=== PATIENT | female | born 1960 | race Two or more races ===

== ENCOUNTER 2024-03-31 16:52 | Inpatient (IN) | payer MEDICAID, OTHER ==
[~2024-03-31] VITALS: Ht 157.5 cm; Wt 89.2 kg
[~2024-03-31 16:52] MED LIST: IBUP-1456 PO; LOPE2TAB73 PO; OMEP20CA74 OR
[2024-03-31] MEDS ORDERED: HYDROmorphone HCL 2 MG/ML VL/or syr IV ONE (19:30)
--- NOTE | 2024-03-31 19:53 | ED.PDOC ---
History of Present Illness(SKN HPI Comments This is a pleasant but obese 63-year-old female who arrives to the ED today for evaluation of a vaginal abscess that began five days ago and has worsened daily. Patient states it is a right-sided on abscess and she has had difficulties even sitting at this point has she states it has become very large. Patient denies any fever nausea or vomiting. Vital signs were stable on arrival. Chief Complaint: Abscess Time Seen by MD: 19:04 Primary Care Provider: MEDARDO History of Present Illness: Nurses Notes Allergies: Coded Allergies: NO KNOWN ALLERGIES (Unverified , 03/30/13) Home Meds Active Scripts Ibuprofen (Ibuprofen) 800 Mg Tab, 800 MG PO Q6HP PRN, #30 MG 0 Refills Prov:JASON MIRANDA 03/30/13 Loperamide Hcl (Loperamide A-D) 2 Mg Tab, 2 MG PO TIDP PRN, #15 TAB 0 Refills Prov:AJSON MIRANDA 03/30/13 Omeprazole (PRILOSEC) 20 Mg Cap, 20 MG OR DAILY, #30 CAP 0 Refills Prov:JASON MIRANDA [facility] 03/30/13 Information Source: Patient Mode of Arrival: Ambulatory Severity: Moderate Timing: Days Duration: Since onset Prehospital treatment: None Location: Other (Right-sided vagina) Mechanism: Spontaneous Onset Object: None Condition of Object: None Retained Foreign Body: No Wound Type: Abscess Tetanus: >5 Years Associated Signs and Symptoms: Redness, Swelling Past Medical History PAST MEDICAL HISTORY: Denies Surgical History: Denies all surgeries [employer] History: No Pertinent [employer] History Family History Family History: Unknown Social History Smoker: Non-Smoker Alcohol: Denies ETOH Use Drugs: Denies Drug Use Lives In: Home Constitutional: denies: chills, diaphoresis, fatigue, fever, malaise, sweats, weakness, others EENTM: denies: blurred vision, double vision, ear bleeding, ear discharge, ear drainage, ear pain, ear ringing, eye pain, eye redness, hearing loss, mouth pain, mouth swelling, nasal discharge, nose bleeding, nose congestion, nose p ain, photophobia, tearing, throat pain, throat swelling, voice changes, others Respiratory: denies: cough, hemoptysis, orthopnea, SOB at rest, shortness of breath, SOB with excertion, stridor, wheezing, others Cardiovascular: denies: chest pain, dizzy spells, diaphoresis, Dyspnea on exertion, edema, irregular heart beat, left arm pain, lightheadedness, palpitations, PND, syncope, others Gastrointestinal: denies: abdomen distended, abdominal pain, blood streaked bowels, constipated, diarrhea, dysphagia, difficulty swallowing, hematemesis, melena, nausea, poor appetite, poor fluid intake, rectal bleeding, rectal pain, vomiting, others Genitourinary: reports: others (Right-sided vaginal abscess); denies: abnormal vagina bleeding, burning, dyspareunia, dysuria, flank pain, frequency, hematuria, incontinence, pain, , vagina discharge, urgency Neurological: denies: dizziness, fainting, headache, left sided numbness, left sided weakness, numbness, paresthesia, pre-existing deficit, right sided numbness, right sided weakness, seizure, speech problems, tingling, tremors, weakness, others Musculoskeletal: denies: back pain, gout, joint pain, joint swelling, muscle pain, muscle stiffness, neck pain, others Integumetry: denies: bruises, change in color, change in hair/nails, dryness, laceration, lesions, lumps, rash, wounds, others Allergic/Immunocompromised: denies: Difficulty Healing, Frequent Infections, Hives, Itching, others Hematologic/Lymphatic: denies: anemia, blood clots, easy bleeding, easy bruising, swollen glands, others Endocrine: denies: excessive hunger, excessive sweating, excessive thirst, excessive urination, flushing, intolerance to cold, intolerance to heat, unexplained weight gain, unexplained weight loss, others Psychiatric: denies: anxiety, bipolar disorder, depression, hopeless, panic disorder, schizophrenia, sleepless, suicidal, others Physical Exam General Appearance: Moderate Distress (Due vaginal abscess pain), Obese HEENT: Normal ENT Inspection, Pharynx Normal, TMs Normal Neck: Full Range of Motion, Non-Tender, Normal, Normal Inspection Respiratory: Chest Non-Tender, Lungs Clear, No Accessory Muscle Use, No Respiratory Distress, Normal Breath Sounds Cardiovascular: No Edema, No JVD, No Murmur, No Gallop, Normal Peripheral Pulses, Regular Rate/Rhythm Breast Exam: Deferred Gastrointestinal: No Organomegaly, Non Tender, No Pulsatile Mass, Normal Bowel Sounds, Soft Genitalia: Other (Patient displays a large 6-7 cm elongated and loculated abscess to the right labia majora. Possible inferior drainage point noted. Exquisitely tender to palpation throughout.) Pelvic: Deferred Rectal: Deferred Extremities: No calf tenderness, Normal capillary refill, Normal inspection, Normal range of motion, Non-tender, No pedal edema Neurologic: Alert, No Motor Deficits, Normal Affect, Normal Mood, No Sensory Deficits Cerebellar Function: Normal Reflexes: Normal Skin: Dry, Normal Color, Warm Lymphatic: No Adenopathy Was a procedure done? Was a procedure done?: No Differential Diagnosis (INTG) Differential Diagnosis: Other (Vaginal abscess, Bartholin's cyst lower) X-Ray, Labs, Meds, VS Vital Signs Date Time Temp Pulse Resp B/P (MAP) Pulse Ox O2 Delivery O2 Flow Rate FiO2 03/31/24 17:10 99.3 107 18 107/61 (76) 96 Lab Test 03/31/24 19:37 Range/Units White Blood Count 7.4 4.4-10.8 10^3/uL Red Blood Count 4.35 4.0-5.20 10^6/uL Hemoglobin 14.2 12.2-16.2 g/dL Hematocrit 41.7 36.0-46.0 % Mean Corpuscular Volume 95.8 80.0-100.0 fL Mean Corpuscular Hemoglobin 32.8 H 28.0-32.0 pg Mean Corpuscular Hemoglobin Concent 34.2 32.0-36.0 g/dL Red Cell Distribution Width 13.5 11.8-14.3 % Platelet Count 229 140-450 10^3/uL Mean Platelet Volume 8.6 6.9-10.8 fL Neutrophils (%) (Auto) 69.6 37.0-80.0 % Lymphocytes (%) (Auto) 20.6 10.0-50.0 % Monocytes (%) (Auto) 6.6 0.0-12.0 % Eosinophils (%) (Auto) 2.8 0.0-7.0 % Basophils (%) (Auto) 0.4 0.0-2.0 % Neutrophils # (Auto) 5.2 1.6-8.6 10 ^3/uL Lymphocytes # (Auto) 1.5 0.4-5.4 10 ^3/uL Monocytes # (Auto) 0.5 0-1.3 10 ^3/uL Eosinophils # (Auto) 0.2 0-0.8 10 ^3/uL Basophils # (Auto) 0 0-0.2 10 ^3/uL Nucleated Red Blood Cells 0.0 % Sodium Level Pending Potassium Level Pending Chloride Level Pending Carbon Dioxide Level Pending Anion Gap Pending Blood Urea Nitrogen Pending Creatinine Pending Glomerular Filtration Rate Calc Pending BUN/Creatinine Ratio Pending Serum Glucose Pending Lactic Acid Level Pending Calcium Level Pending X-Ray, Labs, Meds, VS Comment I attempted some mild manipulation to see if I can ascertain any level of drainage, but the abscess is loculated and will require surgical debridement. Patient's insurance on arrival was designated as [employer] at arrival. Patient no longer has [employer] but rather, has [facility]. Time of 1ST Reevaluation: 19:52 Reevaluation 1ST: Improved Consultation: PCP, Surgery Patient Education/Counseling: Diagnosis, Treatment Family Education/Counseling: Diagnosis, Treatment Departure 1 Departure Time of Disposition: 19:52 Impression: Primary Impression: Abscess of vagina Disposition: 02 SHORT TERM HOSPITAL Condition: Stable Discharged With: Self Critical Care Note Critical Care Time?: No Stability Stability form required: No Heart Score Heart Score: Heart Score Response (Comments) Value History N/A 0 EKG N/A 0 Age N/A 0 Risk Factors N/A 0 Troponin N/A 0 Total 0 ANUSHKA SAAB PAC Mar 31, 2024 19:53
[2024-03-31 20:09] LABS: Basophils # (auto) 0 10 ^3/uL (0-0.2); Basophils % (auto) 0.4 % (0.0-2.0); Eosinophils # (auto) 0.2 10 ^3/uL (0-0.8); Eosinophils % (auto) 2.8 % (0.0-7.0); Hematocrit 41.7 % (36.0-46.0); Hemoglobin 14.2 g/dL (12.2-16.2); Lymphocytes # (auto) 1.5 10 ^3/uL (0.4-5.4); Lymphocytes % (auto) 20.6 % (10.0-50.0); Mean Corpuscular Hemoglobin 32.8 pg (28.0-32.0); Mean Corpuscular Hgb Conc. 34.2 g/dL (32.0-36.0); Mean Corpuscular Volume 95.8 fL (80.0-100.0); Monocytes # (auto) 0.5 10 ^3/uL (0-1.3); Monocytes % (auto) 6.6 % (0.0-12.0); Neutrophils # (auto) 5.2 10 ^3/uL (1.6-8.6); Neutrophils % (auto) 69.6 % (37.0-80.0); Platelet Count (auto) 229 10^3/uL (140-450); Red Blood Cells 4.35 10^6/uL (4.0-5.20); Red Cell Distribution Width 13.5 % (11.8-14.3); White Blood Cell 7.4 10^3/uL (4.4-10.8)
[2024-03-31 20:21] LABS: Potassium 4.3 mmol/L (3.5-5.1); Sodium 142 mmol/L (136-145)
[2024-03-31 20:22] LABS: Anion Gap 7 (5-15); Calcium 9.9 mg/dL (8.7-10.4); Carbon Dioxide 26 mmol/L (20-31)
[2024-03-31 20:28] LABS: BUN/Creatinine Ratio 19.2 (10.0-20.0); Blood Urea Nitrogen 14 mg/dL (9-23)
[2024-03-31 20:36] LABS: Chloride 109 mmol/L (98-107); Glucose 114 mg/dL (74-106)
[2024-03-31] MEDS ORDERED: ONDANSETRON HCL 4 MG/2 ML VIAL IV PRN (21:45)
[2024-03-31] MEDS ORDERED: MORPHINE SULFATE INJ 2 MG/ml SYRG IV PRN ×2 (21:45→22:30)
[2024-03-31] MEDS ORDERED: DOCUSATE SOD 100 MG CAP PO PRN (21:45)
[2024-03-31] MEDS ORDERED: HYDROcodone-ACET 5/325MG TAB PO PRN (21:45)
[2024-03-31] MEDS ORDERED: NITROGLYCERIN 0.4 MG SL TAB SL PRN (22:30)
--- NOTE | 2024-03-31 22:39 | DVHHP2 ---
History of Present Illness Reason for Visit: Abscess of vagina History of Present Illness The patient is a 63-year-old female who denies past medical history presented to [facility] ED for evaluation of vaginal abscess. Patient reports right-sided vaginal abscess which is very large, causing difficulty sitting, pa inful when ambulating,, rating pain 7/10 numeric scale, getting worse that prompted this visit. Patient was seen and evaluated in the ED, laboratory data shows WBC 7.4, platelets 229, sodium 142, potassium 4.3, BUN 14, creatinine 0.73, GFR 94, glucose 114, blood pressure 107/61, heart rate 107, temperature 99.3, O2 saturation 96% on room air. Patient was started on IV antibiotic r egimen Rocephin, please see medication orders section in the computer. On my assessment, patient denied chest pain, no headache, no dizziness, no nausea, no vomiting, no fever, no chills. No other modifying factor or other associated signs and symptoms noted. The patient was admitted to the hospital for further evaluation and medical management. Past Medical History Denies past medical history Past Surgical History Denies all surgeries Family History Reviewed, noncontributory to the management of this case. Past Social History The patient lives at home, denies smoking, alcohol or illicit drugs abuse. Review of Systems Constitutional: No: Fever, Chills, Sweats, Weakness, Malaise, Other Eyes: No: Pain, Vision change, Conjunctivae inflammation, Eyelid inflammation, Other, Redness ENT: No: Ear pain, Ear discharge, Nose pain, Nose discharge, Nose congestion, Mouth pain, Mouth swelling, Throat pain, Throat swelling, Other Respiratory: No: Cough, Dry, Shortness of breath, SOB with excertion, Wheezing, Hemoptysis, Pleuritic Pain, Sputum, Wheezing, Other Cardiovascular: No: Chest Pain, Palpitations, Orthopnea, Paroxysmal Noc. Dyspnea, Edema, Lt Headedness, Other Gastrointestinal: No: Nausea, Vomiting, Abdominal Pain, Diarrhea, Constipation, Melena, Hematochezia, Other Genitourinary: No Dysuria, No Frequency, No Incontinence, No Hematuria, No Retention; Other (Right-sided vaginal abscess) Musculoskeletal: No: other, neck pain, shoulder pain, arm pain, back pain, hand pain, leg pain, foot pain Skin: No: Rash, Lesions, Jaundice, Bruising, Other Neurological: No: Weakness, Numbness, Incoordination, Change in speech, Confusion, Seizures, Other Allergies: Coded Allergies: NO KNOWN ALLERGIES (Unverified , 03/30/13) Medications Current Medications Medications Dose Ordered Sig/John Route Start Time Stop Time Status Last Admin Dose Admin Ceftriaxone Sodium 50 ml @ 100 mls/hr DAILY@09 IV 04/01/24 09:00 Sodium Chloride 10 ml Q8HR IV 03/31/24 22:00 Acetaminophen/ Hydrocodone Bitart 1 tab Q4HP PRN PO 03/31/24 21:45 Ondansetron HCl 4 mg Q4HP PRN IV 03/31/24 21:45 Docusate Sodium 100 mg BIDPRN PRN PO 03/31/24 21:45 Acetaminophen 650 mg Q6HP PRN PO 03/31/24 21:45 Morphine Sulfate 2 mg Q4HPRN PRN IV 03/31/24 21:45 Exam Vital Signs Vital Signs Date Time Temp Pulse Resp B/P (MAP) Pulse Ox O2 Delivery O2 Flow Rate FiO2 03/31/24 17:10 99.3 107 18 107/61 (76) 96 General Appearance: Alert, Oriented X3, Cooperative, No acute distress HEENT: Atraumatic, PERRLA, EOMI, Mucous membr. moist/pink Respiratory: Clear to auscultation, Normal air movement Cardiovascular: Regular rate, Normal S1, Normal S2, No murmurs Abdominal: Normal bowel sounds, Soft, No tenderness, No hepatospenomegaly, No masses Extremities: No clubbing, No cyanosis, No edema, Normal pulses, No tenderness/swelling Skin: No rashes, No breakdown, No significant lesion Neuro: Normal gait, Normal speech, Strength at 5/5 X4 ext, Normal tone, Sensat ion intact, Cranial nerves 3-12 NL, Reflexes 2+ Psych/Mental Status: Mental status NL, Mood NL Labs/Xrays Labs Test 03/31/24 19:37 Range/Units White Blood Count 7.4 4.4-10.8 10^3/uL Red Blood Count 4.35 4.0-5.20 10^6/uL Hemoglobin 14.2 12.2-16.2 g/dL Hematocrit 41.7 36.0-46.0 % Mean Corpuscular Volume 95.8 80.0-100.0 fL Mean Corpuscular Hemoglobin 32.8 H 28.0-32.0 pg Mean Corpuscular Hemoglobin Concent 34.2 32.0-36.0 g/dL Red Cell Distribution Width 13.5 11.8-14.3 % Platelet Count 229 140-450 10^3/uL Mean Platelet Volume 8.6 6.9-10.8 fL Neutrophils (%) (Auto) 69.6 37.0-80.0 % Lymphocytes (%) (Auto) 20.6 10.0-50.0 % Monocytes (%) (Auto) 6.6 0.0-12.0 % Eosinophils (%) (Auto) 2.8 0.0-7.0 % Basophils (%) (Auto) 0.4 0.0-2.0 % Neutrophils # (Auto) 5.2 1.6-8.6 10 ^3/uL Lymphocytes # (Auto) 1.5 0.4-5.4 10 ^3/uL Monocytes # (Auto) 0.5 0-1.3 10 ^3/uL Eosinophils # (Auto) 0.2 0-0.8 10 ^3/uL Basophils # (Auto) 0 0-0.2 10 ^3/uL Nucleated Red Blood Cells 0.0 % Sodium Level 142 136-145 mmol/L Potassium Level 4.3 3.5-5.1 mmol/L Chloride Level 109 H 98-107 mmol/L Carbon Dioxide Level 26 20-31 mmol/L Anion Gap 7 5-15 Blood Urea Nitrogen 14 9-23 mg/dL Creatinine 0.73 0.550-1.02 mg/dL Glomerular Filtration Rate Calc 94 >90 mL/min BUN/Creatinine Ratio 19.2 10.0-20.0 Serum Glucose 114 H 74-106 mg/dL Lactic Acid Level 0.8 0.4-2.0 mmol/L Calcium Level 9.9 8.7-10.4 mg/dL Assessment/Plan Assessment/Plan Abscess of vagina Vaginal pain Plan 1. Admit to med surge unit 2. Breathing treatment 3. Pain control management 4. IV antibiotic management 5. Management of fluids and electrolytes 6. Consultation for hospitalist 7. Diagnostic test chest x-ray 8. DVT prophylaxis-on SCDs 9. Repeat labs CBC, CMP in a.m. 10. Continue with current medical management 11. Treatment plan discussed with patient and RN. Patient verbalized understanding. Plan discussed with: Patient, Other (RN) My Orders Orders - CARLOS MILAN DNP Procedure Category Date Status Time Ceftriaxone 1gm/50ml PHA 04/01/24 In Process D5w (Rocephin) 09:00 Allergies EDI 03/31/24 In Process 21:37 Code Status CODE 03/31/24 Transmitted 21:37 Sodium Chloride Lock PHA 03/31/24 In Process (Saline Lock Ns) 22:00 Oxygen Per Hour RT 03/31/24 Transmitted 21:37 Hydrocodone-Acet PHA 03/31/24 In Process 5/325mg Tab ([place] 21:45 Ondansetron Hcl PHA 03/31/24 In Process (Zofran) 21:45 Docusate Sodium PHA 03/31/24 In Process Capsule (Colace 21:45 Complete Blood Count LAB 04/01/24 Verified 04:00 Comprehensive LAB 04/01/24 Verified Metabolic Panel 04:00 Cardiac DIET 04/01/24 Transmitted Diet-2gna,Lofat,Lochol Breakfast Condition: Serious EDI 03/31/24 In Process 21:37 Acetaminophen Tablet PHA 03/31/24 In Process (Tylenol Tablet) 21:45 Bedrest With Bathroom EDI 03/31/24 In Process Privileg 21:37 Morphine Sulfate PHA 03/31/24 In Process Injection 21:45 Sequential EDI 03/31/24 In Process Compression Device Problem List: (1) Abscess of vagina (2) Vaginal pain Date of Service: Mar 31, 2024 Billing Provider: CARLOS MILAN DNP Common Visit Codes: [id number] INP/OBS CARE (MOD) CARLOS MILAN DNP Mar 31, 2024 22:39
[2024-04-01] VITALS (8 sets, daily range): BP systolic 105–134; BP diastolic 48–73; PULSE 64–91; RESP 18–20; TEMP 97.8–98.7; O2SAT 97–99
[2024-04-01] MEDS: SODIUM CHLOR 0.9% PF (SALINE LOCK) 10ML VIAL/SYR IV SCH (00:17)
[2024-04-01] MEDS: cefTRIAXone 1GM/50ML D5W 50 ML IV ONE (00:17)
[2024-04-01] MEDS ORDERED: OMEP-448 PO (02:38)
[2024-04-01] MEDS ORDERED: VITA400T4 PO (02:38)
[2024-04-01] MEDS ORDERED: CYAN100042 PO (02:38)
[2024-04-01] MEDS ORDERED: GAB100C PO (02:38)
[2024-04-01] MEDS ORDERED: CHOL20002 PO (02:38)
[2024-04-01] MEDS ORDERED: SUCR1TAB PO (02:38)
[2024-04-01 03:25] LABS: Urine Bacteria None Seen /hpf (None Seen)
[2024-04-01 03:29] LABS: Urine Blood TRACE /uL (Negative); Urine Clarity Clear (Clear); Urine Color Light-Yellow (Yellow); Urine Protein, UAD Negative (Negative); Urine Specific Gravity 1.013 (1.001-1.035); Urine Squamous Epithelial Cell FEW /hpf (<5); Urine Urobilinogen Normal (Negative); Urine WBC 1 /hpf (0 - 5); Urine pH 5.5 (5.0-9.0)
[2024-04-01 04:38] LABS: Basophils # (auto) 0 10 ^3/uL (0-0.2); Basophils % (auto) 0.6 % (0.0-2.0); Eosinophils # (auto) 0.2 10 ^3/uL (0-0.8); Eosinophils % (auto) 2.8 % (0.0-7.0); Hematocrit 38.8 % (36.0-46.0); Lymphocytes # (auto) 1.6 10 ^3/uL (0.4-5.4); Lymphocytes % (auto) 22.8 % (10.0-50.0); Mean Corpuscular Hemoglobin 32.2 pg (28.0-32.0); Mean Corpuscular Hgb Conc. 33.6 g/dL (32.0-36.0); Mean Corpuscular Volume 95.9 fL (80.0-100.0); Monocytes # (auto) 0.6 10 ^3/uL (0-1.3); Monocytes % (auto) 8.3 % (0.0-12.0); Neutrophils # (auto) 4.5 10 ^3/uL (1.6-8.6); Neutrophils % (auto) 65.5 % (37.0-80.0); Platelet Count (auto) 216 10^3/uL (140-450); Red Blood Cells 4.05 10^6/uL (4.0-5.20); Red Cell Distribution Width 13.2 % (11.8-14.3); White Blood Cell 6.9 10^3/uL (4.4-10.8)
[2024-04-01 04:57] LABS: Alanine Aminotransferase 16 U/L (7-40); Alkaline Phosphatase 90 U/L (46-116); Calcium 9.6 mg/dL (8.7-10.4); Carbon Dioxide 25 mmol/L (20-31); Chloride 107 mmol/L (98-107)
[2024-04-01 04:58] LABS: Albumin 4.3 g/dL (3.2-4.8); Anion Gap 8 (5-15); BUN/Creatinine Ratio 26.8 (10.0-20.0); Blood Urea Nitrogen 15 mg/dL (9-23); Glucose 102 mg/dL (74-106); Potassium 4.2 mmol/L (3.5-5.1); Sodium 140 mmol/L (136-145)
[2024-04-01 04:59] LABS: Aspartate Aminotransferase 11 U/L (13-40)
[2024-04-01] MEDS: cefTRIAXone 1GM/50ML D5W 50 ML IV SCH (13:05)
--- NOTE | 2024-04-01 15:06 | DVHPN2 ---
Subjective states noticed small pimple in vulvar area/was in discomfort and shaved and got wose after//had incision and drainage at er Changes from previous H/P or p: No Changes Eyes: No Pain, No Vision change, No Conjunctivae inflammation, No Eyelid inflammation, No Other, No Redness ENT: No Ear pain, No Ear discharge, No Nose pain, No Nose discharge, No Nose congestion, No Mouth pain, No Mouth swelling, No Throat pain, No Throat swelling, No Other Cardiovascular: No Chest Pain, No Palpitations, No Orthopnea, No Paroxysmal Noc. Dyspnea, No Edema, No Lt Headedness, No Other Respiratory: No Cough, No Dry, No Shortness of breath, No SOB with excertion, No Wheezing, No Hemoptysis, No Pleuritic Pain, No Sputum, No Other Gastrointestinal: No Nausea, No Vomiting, No Abdominal Pain, No Diarrhea, No Constipation, No Melena, No Hematochezia, No Other Genitourinary: No Dysuria, No Frequency, No Incontinence, No Hematuria, No Retention; Other (Right-sided vaginal abscess) Musculoskeletal: No other, No neck pain, No shoulder pain, No arm pain, No back pain, No hand pain, No leg pain, No foot pain Skin: No Rash, No Lesions, No Jaundice, No Bruising, No Other Objective Vitals Vital Signs Date Time Temp Pulse Resp B/P (MAP) Pulse Ox O2 Delivery O2 Flow Rate FiO2 04/01/24 09:00 98.4 88 19 117/73 (88) 97 98.4 General Appearance: Alert, Oriented X3, Cooperative, No acute distress, mild distress Cardiovascular: Regular rate, Normal S1, Normal S2 Abdomen: Normal bowel sounds, Soft, No tenderness, No hepatospenomegaly Musculoskeletal: Normal sensory function, Normal motor function Neuro: Normal gait, Normal speech, Strength at 5/5 X4 ext, Normal tone, S ensation intact Medications Current Medications Medications Dose Ordered Sig/John Route Start Time Stop Time Status Last Admin Dose Admin Ceftriaxone Sodium 50 ml @ 100 mls/hr DAILY@09 IV 04/01/24 09:00 04/01/24 13:05 100 MLS/HR Sodium Chloride 10 ml Q8HR IV 03/31/24 22:00 04/01/24 05:33 10 ML Acetaminophen/ Hydrocodone Bitart 1 tab Q4HP PRN PO 03/31/24 21:45 Ondansetron HCl 4 mg Q4HP PRN IV 03/31/24 21:45 Docusate Sodium 100 mg BIDPRN PRN PO 03/31/24 21:45 Acetaminophen 650 mg Q6HP PRN PO 03/31/24 21:45 Morphine Sulfate 2 mg Q4HPRN PRN IV 03/31/24 21:45 Nitroglycerin 0.4 mg Q5MINP PRN SL 03/31/24 22:30 Morphine Sulfate 2 mg Q30M PRN IV 03/31/24 22:30 Metronidazole 100 ml @ 100 mls/hr Q8HR IV 04/01/24 14:00 Laboratory Results Laboratory Tests 04/01/24 03:45 Chemistry Test 03/31/24 19:37 04/01/24 03:45 Calcium Level 9.9 mg/dL (8.7-10.4) 9.6 mg/dL (8.7-10.4) Albumin 4.3 g/dL (3.2-4.8) Total Protein 7.0 g/dL (5.7-8.2) LFT Test 04/01/24 03:45 Alanine Aminotransferase (ALT) 16 U/L (7-40) Alkaline Phosphatase 90 U/L (46-116) Aspartate Amino Transferase (AST) 11 U/L (13-40) L Total Bilirubin 1.0 mg/dL (0.2-1.0) Urinalysis Test 04/01/24 03:05 Urine Color Light-yellow (Yellow) Urine Clarity Clear (Clear) Urine pH 5.5 (5.0-9.0) Urine Specific [place] 1.013 (1.001-1.035) Urine Protein Negative (Negative) Urine Ketones Negative (Negative) Urine Blood Trace /uL (Negative) H Urine Nitrite Negative (Negative) Urine Bilirubin Negative (Negative) Urine Urobilinogen Normal mg/dL (Negative) Urine Leukocyte Esterase Trace /uL (Negative) Urine RBC 1 /hpf (0 - 4) Urine WBC 1 /hpf (0 - 5) Urine Squamous Epithelial Cells Few /hpf (<5) Urine Bacteria None seen /hpf (None Seen) Urine Glucose Normal mg/dL (Normal) Assessment/Plan Assessment/Plan vulvar/labial abcess- adjust antibiotics//consult gi ambulatory status Plan discussed with: Patient, Other My Orders Orders - KELSEA CARRIZALES MD Procedure Category Date Status Time Metronidazole PHA 04/01/24 In Process 500mg/100ml (Flagyl 14:00 * Horologist Consultation CONS 04/01/24 Transmitted 13:42 Date of Service: Apr 01, 2024 Billing Provider: KELSEA CARRIZALES MD Common Visit Codes: [id number] INP/OBS CARE(MOD) KELSEA CARRIZALES MD Apr 01, 2024 15:06
[2024-04-01] MEDS: ACETAMINOPHEN 325 MG TAB PO PRN (15:31)
[2024-04-01] MEDS: metroNIDAZOLE 500MG/100ML 100 ML IV SCH (15:33)
[2024-04-02 05:00] VITALS: BP 110/57; PULSE 67; RESP 20; TEMP 98.1; O2SAT 96
--- NOTE | 2024-04-02 08:36 | DVHPN2 ---
Chief Complaints Patient reports: No new complaints, Feels better Nursing reports: No new complaints Objective Vitals Vital Signs Date Time Temp Pulse Resp B/P (MAP) Pulse Ox O2 Delivery O2 Flow Rate FiO2 04/02/24 05:00 98.1 67 20 110/57 (74) 96 98.1 04/01/24 20:00 Room Air* 0 21 Medications Current Medications Medications (Trade) Dose Ordered Sig/John Route PRN Reason Start Time Stop Time Status Last Admin Metronidazole 100 ml @ 100 mls/hr Q8HR IV 04/01/24 14:00 04/02/24 05:50 Piperacillin Sod/ Tazobactam Sod 100 ml @ 25 mls/hr Q8HR IV 04/02/24 14:00 Others pelvic exam -r labia majora abscess improving clinically Studies Laboratory Tests 04/01/24 03:45 Test 04/01/24 03:45 Range/Units Serum Glucose 102 74-106 mg/dL Ass/Plan Assessment r vulva abscess clinically improving Plan cont with abx awiat wound care today MATIAS RIVAS DO Apr 02, 2024 08:36
[2024-04-02 09:00] VITALS: BP 104/56; PULSE 68; RESP 17; TEMP 97.9; O2SAT 95
--- NOTE | 2024-04-02 09:09 | DVHINCON2 ---
REASON FOR CONSULTATION: Vulvar abscess. HISTORY OF PRESENT ILLNESS: The patient is a 63-year-old female admitted for evaluation of vulvar pain and abscess. The patient reported having severe pain, unable to walk. Subsequently, the patient was admitted for large vulvar abscess. The patient denies having any diabetes. Her CT revealed a 3.7 cm cyst of left adnexa. The patient was given Rocephin and Flagyl. PAST MEDICAL HISTORY: None. PAST SURGICAL HISTORY: None. SOCIAL HISTORY: None. FAMILY HISTORY: None. OBSTETRIC AND GYNECOLOGIC HISTORY: Last Pap several years ago. REVIEW OF SYSTEMS: Consistent with HPI. PHYSICAL EXAMINATION: HEENT: Within normal limits. CARDIOVASCULAR: Regular rate and rhythm. LUNGS: Clear to auscultation. BREASTS: Symmetrical. No masses. ABDOMEN: Soft, nontender. PELVIC: Reveals vulvar abscess of right labia majora approximately 6 cm elongated, tender to touch. Vagina atrophic. Cervix grossly normal. Uterus normal size. Adnexa nonpalpable. IMPRESSION: Right labia majora abscess/cellulitis. RECOMMENDATION: The patient underwent incision and drainage in the Emergency Room. At the time of this consultation, there was no active drainage of pus. We will switch the patient's antibiotic to Zosyn. Wound care to do warm compress and cleansing of the abscess daily. The patient should feel better between 24-48 hours. We will follow patient. Thank you very much for this consultation. DO VICENTE Vu TID: [id number] RECEIPT: [id number]
[2024-04-02 13:37] VITALS: BP 114/60; PULSE 83; RESP 17; TEMP 98.7; O2SAT 97
[2024-04-02] MEDS: PIPERACILLIN-TAZOB 3.375GM 100 ML IV SCH (14:44)
[2024-04-02 17:00] VITALS: BP 104/55; PULSE 76; RESP 18; TEMP 97.9; O2SAT 98
--- NOTE | 2024-04-02 18:03 | DVHPN2 ---
Subjective states noticed small pimple in vulvar area/was in discomfort and shaved and got wose after//had incision and drainage at er Changes from previous H/P or p: No Changes Eyes: No Pain, No Vision change, No Conjunctivae inflammation, No Eyelid inflammation, No Other, No Redness ENT: No Ear pain, No Ear discharge, No Nose pain, No Nose discharge, No Nose congestion, No Mouth pain, No Mouth swelling, No Throat pain, No Throat swelling, No Other Cardiovascular: No Chest Pain, No Palpitations, No Orthopnea, No Paroxysmal Noc. Dyspnea, No Edema, No Lt Headedness, No Other Respiratory: No Cough, No Dry, No Shortness of breath, No SOB with excertion, No Wheezing, No Hemoptysis, No Pleuritic Pain, No Sputum, No Other Gastrointestinal: No Nausea, No Vomiting, No Abdominal Pain, No Diarrhea, No Constipation, No Melena, No Hematochezia, No Other Genitourinary: No Dysuria, No Frequency, No Incontinence, No Hematuria, No Retention; Other (Right-sided vaginal abscess) Musculoskeletal: No other, No neck pain, No shoulder pain, No arm pain, No back pain, No hand pain, No leg pain, No foot pain Skin: No Rash, No Lesions, No Jaundice, No Bruising, No Other Objective Vitals Vital Signs Date Time Temp Pulse Resp B/P (MAP) Pulse Ox O2 Delivery O2 Flow Rate FiO2 04/02/24 17:00 97.9 76 18 104/55 (71) 98 97.9 04/02/24 08:00 Room Air* 0 21 Intake/Output Intake and Output 04/02/24 06:59 Intake Total 800 ml Balance 800 ml Intake Oral 550 ml IV Total 250 ml # Voids 4 # Bowel Movements 2 General Appearance: Alert, Oriented X3, Cooperative, No acute distress, mild distress Cardiovascular: Regular rate, Normal S1, Normal S2 Abdomen: Normal bowel sounds, Soft, No tenderness, No hepatospenomegaly Musculoskeletal: Normal sensory function, Normal motor function Neuro: Normal gait, Normal speech, Strength at 5/5 X4 ext, Normal tone, S ensation intact Medications Current Medications Medications Dose Ordered Sig/John Route Start Time Stop Time Status Last Admin Dose Admin Sodium Chloride 10 ml Q8HR IV 03/31/24 22:00 04/02/24 14:00 10 ML Acetaminophen/ Hydrocodone Bitart 1 tab Q4HP PRN PO 03/31/24 21:45 Ondansetron HCl 4 mg Q4HP PRN IV 03/31/24 21:45 Docusate Sodium 100 mg BIDPRN PRN PO 03/31/24 21:45 Acetaminophen 650 mg Q6HP PRN PO 03/31/24 21:45 04/01/24 15:31 650 MG Morphine Sulfate 2 mg Q4HPRN PRN IV 03/31/24 21:45 Nitroglycerin 0.4 mg Q5MINP PRN SL 03/31/24 22:30 Morphine Sulfate 2 mg Q30M PRN IV 03/31/24 22:30 Metronidazole 100 ml @ 100 mls/hr Q8HR IV 04/01/24 14:00 04/02/24 13:15 100 MLS/HR Piperacillin Sod/ Tazobactam Sod 100 ml @ 25 mls/hr Q8HR IV 04/02/24 14:00 04/02/24 14:44 25 MLS/HR Laboratory Results Laboratory Tests 04/01/24 03:45 Urinalysis Test 04/01/24 03:05 Urine Color Light-yellow (Yellow) Urine Clarity Clear (Clear) Urine pH 5.5 (5.0-9.0) Urine Specific Liz[place] 1.013 (1.001-1.035) Urine Protein Negative (Negative) Urine Ketones Negative (Negative) Urine Blood Trace /uL (Negative) H Urine Nitrite Negative (Negative) Urine Bilirubin Negative (Negative) Urine Urobilinogen Normal mg/dL (Negative) Urine Leukocyte Esterase Trace /uL (Negative) Urine RBC 1 /hpf (0 - 4) Urine WBC 1 /hpf (0 - 5) Urine Squamous Epithelial Cells Few /hpf (<5) Urine Bacteria None seen /hpf (None Seen) Urine Glucose Normal mg/dL (Normal) Labs and/or images reviewed: Labs reviewed by me, Image(s) reviewed by me Assessment/Plan Assessment/Plan vulvar/labial abcess- adjust antibiotics//consult gi ambulatory status Plan discussed with: Patient, Other My Orders Orders - KELSEA CARRIZALES MD Procedure Category Date Status Time Cleanse Wound With Ns EDI 04/02/24 In Process 10:28 * Dietary Consult CONS 04/02/24 Transmitted 12:26 Date of Service: Apr 02, 2024 Billing Provider: KELSEA CARRIZALES MD Common Visit Codes: [id number] INP/OBS CARE(MOD) KELSAE CARRIZALES MD Apr 02, 2024 18:03
[2024-04-02 21:00] VITALS: BP 113/42; PULSE 78; RESP 18; TEMP 98; O2SAT 97
[2024-04-03 01:00] VITALS: BP 115/59; PULSE 77; RESP 18; TEMP 98.1; O2SAT 98
[2024-04-03 05:00] VITALS: BP 105/58; PULSE 70; RESP 18; TEMP 98.3; O2SAT 98
[2024-04-03 09:00] VITALS: BP 110/46; PULSE 68; RESP 16; TEMP 97.8; O2SAT 98
--- NOTE | 2024-04-03 09:34 | DVHPN2 ---
Chief Complaints Patient reports: No new complaints, Feels better Objective Vitals Vital Signs Date Time Temp Pulse Resp B/P (MAP) Pulse Ox O2 Delivery O2 Flow Rate FiO2 04/03/24 05:00 98.3 70 18 105/58 (74) 98 98.3 04/02/24 20:00 Room Air* 0 21 Medications Current Medications Medications (Trade) Dose Ordered Sig/John Route PRN Reason Start Time Stop Time Status Last Admin Piperacillin Sod/ Tazobactam Sod 100 ml @ 25 mls/hr Q8HR IV 04/02/24 14:00 04/03/24 06:00 Others PELVIC EXAM -VULVA HEALING,LESS SWOLLEN ,NO ERYTHMA NOTED Studies Laboratory Tests 04/01/24 03:45 Test 04/01/24 03:45 Range/Units Serum Glucose 102 74-106 mg/dL Ass/Plan Assessment r vulva abscess clinically improving Plan MAY DC HOME ON AUGMENTIN X7 DAYS SITZ BATH WILL SIGN OFF THANK YOU MATIAS RIVAS DO Apr 03, 2024 09:34
[2024-04-03 12:00] VITALS: BP 115/52; PULSE 70; RESP 16; TEMP 97.9; O2SAT 98
[2024-04-03] MEDS ORDERED: AUG875T PO (16:23)
[2024-04-03 16:42] VITALS: BP 110/46; PULSE 68; RESP 16; TEMP 97.9; O2SAT 98
== END 2024-04-03 18:50 | disposition home or self-care (01) | DRG 531 ==
LOC: ER 16:52 → OVERFLOW 22:27 → EAST 04-01 11:13
PROVIDERS: ADMIT Nurse Practitioner Family; ATTEND Internal Medicine
PROC: 0UJMXZZ Inspection of Vulva, External Approach (ICD-10-PCS; principal; 2024-03-31)
DX: N76.4 Abscess of vulva (principal)
CPT/HCPCS: 36415; 80048; 80053; 81001; 83605; 85025; 86850; 86900; 86901; G0378; J2543; J3490

== ENCOUNTER 2024-09-12 23:01 | Inpatient (IN) | payer MEDICAID ==
[~2024-09-12] VITALS: Ht 157.5 cm; Wt 89.4 kg
[~2024-09-12 23:01] MED LIST changes: +AUG875T PO; +CHOL20002 PO; +CYAN100042 PO; +GAB100C PO; -IBUP-1456 PO; -LOPE2TAB73 PO; +OMEP-448 PO; -OMEP20CA74 OR; +SUCR1TAB PO; +VITA400T4 PO
[2024-09-12] MEDS: LIDOCAINE VISCOUS 2% 15ML UD MT ONE (23:15)
[2024-09-12] MEDS: MAALOX PLUS or MAALOX 30 ML PO ONE (23:15)
[2024-09-12] MEDS: KETOROLAC TROMETH 30 MG/ML 1ML VIAL IM ONE (23:15)
[2024-09-12 23:36] LABS: Basophils # (auto) 0 10 ^3/uL (0-0.2); Basophils % (auto) 0.4 % (0.0-2.0); Eosinophils # (auto) 0.1 10 ^3/uL (0-0.8); Eosinophils % (auto) 0.7 % (0.0-7.0); Hematocrit 44.7 % (36.0-46.0); Hemoglobin 15.2 g/dL (12.2-16.2); Lymphocytes # (auto) 1.1 10 ^3/uL (0.4-5.4); Mean Corpuscular Hemoglobin 31.5 pg (28.0-32.0); Mean Corpuscular Hgb Conc. 33.9 g/dL (32.0-36.0); Mean Corpuscular Volume 93.1 fL (80.0-100.0); Monocytes # (auto) 0.5 10 ^3/uL (0-1.3); Monocytes % (auto) 5.8 % (0.0-12.0); Neutrophils # (auto) 6.3 10 ^3/uL (1.6-8.6); Neutrophils % (auto) 79.1 % (37.0-80.0); Platelet Count (auto) 222 10^3/uL (140-450); Red Cell Distribution Width 14.1 % (11.8-14.3)
[2024-09-12 23:45] LABS: Potassium 4.1 mmol/L (3.5-5.1); Sodium 142 mmol/L (136-145)
[2024-09-12 23:46] LABS: Anion Gap 12 (5-15); Carbon Dioxide 20 mmol/L (20-31)
[2024-09-12 23:47] LABS: Calcium 9.1 mg/dL (8.7-10.4)
[2024-09-12 23:50] LABS: Chloride 110 mmol/L (98-107)
[2024-09-12 23:51] LABS: BUN/Creatinine Ratio 16.7 (10.0-20.0); Blood Urea Nitrogen 12 mg/dL (9-23)
[2024-09-12 23:52] LABS: Glucose 117 mg/dL (74-106); Lipase 46 U/L (12-53)
--- NOTE | 2024-09-13 00:16 | DVH ---
CT ABDOMEN AND PELVIS WITHOUT CONTRAST: HISTORY: ABD PAIN COMPARISON: None CONTRAST: IV contrast: None TECHNIQUE: Spiral CT performed from the dome of the diaphragm to the pubic symphysis without IV contr ast. Dose reduction technique was used on this scan by utilizing automated exposure control, adjustment of the mA and/or kV according to the patient size. DICOM format image data available to non-affiliated external healthcare facilities or entities on a secure, media free, reciprocally searchable basis wit h patient authorization for at least a 12 month period after the study. FINDINGS: Limited evaluation of the solid organs in the absence of IV contrast. Lung bases: No significant opacities or pleural fluid. Hepatobiliary: No focal hepatic lesion or intrahepatic biliary dilatation. Gallbladder appears stephanie l. Pancreas normal morphology and duct caliber. Normal splenic parenchyma. : The kidneys are without solid mass, hydronephrosis or nephrolithiasis. Normal ureteral caliber. N o abnormality identified in the bladder. Normal adrenal morphology. GI: There is colonic diverticulosis. The appendix is normal. Dilated and fluid-filled loops of small bowel are seen predominantly within the left mid abdomen with decompressed distal small bowel loops. There is fecalization of the small bowel within the midabdomen. There is trace fluid within the pelvi s. Retroperitoneum: No retroperitoneal adenopathy. Cardiovascular: Atherosclerotic aortoiliac calcification. Musculoskeletal: No focal lytic or blastic lesion. No fracture or acute derangement. IMPRESSION: 1. Dilated fluid-filled loops of mid small bowel with transition to decompressed loops seen within th e mid abdomen. Findings are favored to reflect a small-bowel obstruction, though an enteritis cannot be entirely excluded in the appropriate clinical setting. Further clinical correlation is suggested. 2. Incidental findings as detailed.
--- NOTE | 2024-09-13 00:42 | ED.PDOC ---
GI ASSESSMENT HPI Comments 63-year-old female complaining of midepigastric and right upper quadrant abdominal pain which started at 1800. Patient states she ate nancy rosenbaum. States she has been dealing with peptic ulcers over the last few weeks. States she recently had endoscopy done on 08/30. She states she was then placed on Xarelto on 09/04 for DVT in right popliteal. Patient denies any blood in his stool. States she was having some diarrhea the last three days. States the pain fluctuates between 4/10 to 10/10. Chief Complaint: Abdominal Pain Time Seen by MD: 23:06 Primary Care Provider: MEDARDO Reviewed Notes: Nurses Notes Allergies: Coded Allergies: NO KNOWN ALLERGIES (Unverified , 03/30/13) Home Meds Active Scripts Amoxicillin & Pot Clavulanate (AUGMENTIN TABLET) 875 Mg Tb, 875 MG PO BID for 10 Days, #20 TAB Prov:KELSEA CARRIZALES MD 04/03/24 Reported Medications Cholecalciferol (VITAMIN D3) 2,000 Unit Tab, 50 MCG PO DAILY 04/01/24 Alpha Tocopheryl Acid Succinat (VITAMIN E) 400 Unit Tab, 400 UNIT PO DAILY, TAB 04/01/24 Cyanocobalamin (Vitamin B-12) 1,000 Mcg Tab, 1 TAB PO DAILY 04/01/24 Sucralfate (Sucralfate) 1 Gm Tab, 1 TAB PO DAILY 04/01/24 Omeprazole (Omeprazole Dr) 40 Mg Cap, 40 MG PO DAILY 04/01/24 Gabapentin (Gabapentin) 100 Mg Cap, 2 CAP PO BID for neuropathic pain 04/01/24 Information Source: Patient Mode of Arrival: Ambulatory Timing: Minutes Past Medical History PAST MEDICAL HISTORY: GERD Surgical History: Denies all surgeries EMERGENCY MANAGEMENT DIRECTOR History: No Pertinent EMERGENCY MANAGEMENT DIRECTOR History Family History Family History: Unknown Social History Smoker: Non-Smoker Alcohol: Denies ETOH Use Drugs: Denies Drug Use Lives In: Home Constitutional: denies: chills, diaphoresis, fatigue, fever, malaise, sweats, weakness, others EENTM: denies: blurred vision, double vision, ear bleeding, ear discharge, ear drainage, ear pain, ear ringing, eye pain, eye redness, hearing loss, mouth pain, mouth swelling, nasal discharge, nose bleeding, nose congestion, nose pain, photophobia, tearing, throat pain, throat swelling, voice changes, others Respiratory: denies: cough, hemoptysis, orthopnea, SOB at rest, shortness of breath, SOB with excertion, stridor, wheezing, others Cardiovascular: denies: chest pain, dizzy spells, diaphoresis, Dyspnea on exertion, edema, irregular heart beat, left arm pain, lightheadedness, palpitations, PND, syncope, others Gastrointestinal: reports: abdominal pain, diarrhea; denies: abdomen distended, blood streaked bowels, constipated, dysphagia, difficulty swallowing, hematemesis, melena, nausea, poor appetite, poor fluid intake, rectal bleeding, rectal pain, vomiting, others Genitourinary: denies: abnormal vagina bleeding, burning, dyspareunia, dysuria, flank pain, frequency, hematuria, incontinence, pain, , vagina discharge, urgency, others Neurological: denies: dizziness, fainting, headache, left sided numbness, left sided weakness, numbness, paresthesia, pre-existing deficit, right sided numbness, right sided weakness, seizure, speech problems, tingling, tremors, weakness, others Musculoskeletal: denies: back pain, gout, joint pain, joint swelling, muscle pain, muscle stiffness, neck pain, others Integumetry: denies: bruises, change in color, change in hair/nails, dryness, laceration, lesions, lumps, rash, wounds, others Allergic/Immunocompromised: denies: Difficulty Healing, Frequent Infections, Hives, Itching, others Hematologic/Lymphatic: denies: anemia, blood clots, easy bleeding, easy bruising, swollen glands, others Physical Exam General Appearance: Moderate Distress, Normal HEENT: Normal ENT Inspection, Pharynx Normal, TMs Normal Neck: Full Range of Motion, Non-Tender, Normal, Normal Inspection Respiratory: Chest Non-Tender, Lungs Clear, No Accessory Muscle Use, No Respiratory Distress, Normal Breath Sounds Cardiovascular: No Edema, No JVD, No Murmur, No Gallop, Normal Peripheral Pulses, Regular Rate/Rhythm Breast Exam: Deferred Gastrointestinal: Epigastric (Epigastric tenderness), No Organomegaly, No Pulsatile Mass, Normal Bowel Sounds, RUQ (Right upper quadrant tenderness), Soft Genitalia: Deferred Pelvic: Deferred Rectal: Deferred Extremities: No calf tenderness, Normal capillary refill, Normal inspection, Normal range of motion, Non-tender, No pedal edema Musculoskeletal : Apperance: Normal 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 Was a procedure done?: No GI differential Dx Differential Diagnosis: Gastritis/PUD, Gastroenteritis X-Ray, Labs, Meds, VS Vital Signs Date Time Temp Pulse Resp B/P (MAP) Pulse Ox O2 Delivery O2 Flow Rate FiO2 09/12/24 23:10 98.3 84 22 130/47 (74) 98 98.3 Lab Test 09/12/24 23:23 09/12/24 00:30 Range/Units White Blood Count 8.0 4.4-10.8 10^3/uL Red Blood Count 4.80 4.0-5.20 10^6/uL Hemoglobin 15.2 12.2-16.2 g/dL Hematocrit 44.7 36.0-46.0 % Mean Corpuscular Volume 93.1 80.0-100.0 fL Mean Corpuscular Hemoglobin 31.5 28.0-32.0 pg Mean Corpuscular Hemoglobin Concent 33.9 32.0-36.0 g/dL Red Cell Distribution Width 14.1 11.8-14.3 % Platelet Count 222 140-450 10^3/uL Mean Platelet Volume 9.0 6.9-10.8 fL Neutrophils (%) (Auto) 79.1 37.0-80.0 % Lymphocytes (%) (Auto) 14.0 10.0-50.0 % Monocytes (%) (Auto) 5.8 0.0-12.0 % Eosinophils (%) (Auto) 0.7 0.0-7.0 % Basophils (%) (Auto) 0.4 0.0-2.0 % Neutrophils # (Auto) 6.3 1.6-8.6 10 ^3/uL Lymphocytes # (Auto) 1.1 0.4-5.4 10 ^3/uL Monocytes # (Auto) 0.5 0-1.3 10 ^3/uL Eosinophils # (Auto) 0.1 0-0.8 10 ^3/uL Basophils # (Auto) 0 0-0.2 10 ^3/uL Nucleated Red Blood Cells 0.0 % Sodium Level 142 136-145 mmol/L Potassium Level 4.1 3.5-5.1 mmol/L Chloride Level 110 H 98-107 mmol/L Carbon Dioxide Level 20 20-31 mmol/L Anion Gap 12 5-15 Blood Urea Nitrogen 12 9-23 mg/dL Creatinine 0.72 0.550-1.02 mg/dL Glomerular Filtration Rate Calc 95 >90 mL/min BUN/Creatinine Ratio 16.7 10.0-20.0 Serum Glucose 117 H 74-106 mg/dL Calcium Level 9.1 8.7-10.4 mg/dL Lipase 46 12-53 U/L Urine Color Pending Urine Clarity Pending Urine pH Pending Urine Specific [place] Pending Urine Protein Pending Urine Ketones Pending Urine Blood Pending Urine Nitrite Pending Urine Bilirubin Pending Urine Urobilinogen Pending Urine Leukocyte Esterase Pending Urine RBC Pending Urine Microscopic WBC Pending Urine Squamous Epithelial Cells Pending Urine Bacteria Pending Urine Glucose Pending X-Ray, Labs, Meds, VS Comment CT abdomen and pelvis shows concerns for small bowel obstruction Patient will be admitted for SBO Recommend GI consult in the morning Patient will be connected to NG tube with continuous suction Time of 1ST Reevaluation: 01:18 Reevaluation 1ST: Unchanged Patient Education/Counseling: Diagnosis, Treatment Family Education/Counseling: Diagnosis, Treatment SEPSIS Sepsis Screen Date sepsis recognized/suspect: Sep 12, 2024 Time Sepsis recognized/suspect: 2309 Recent Procedure: No On Antibiotic Therapy: No Respiratory Rate >20: No Heart Rate >90: No Temp<36 C (96.8 F) or >38.3 C: No SBP <90 or MAP <65 mmHG: No New Acute Mental Status Change: No Is the patient on CPAP, BIPAP,: No Orders/Vitals/Labs Physician Orders Urinalysis (09/12/24 23:13) Ct Ab Pel Wo Con-No Oral Or Iv (09/12/24 23:13) Ng To Lcs (09/13/24 00:42) Vital Signs Date Time Temp Pulse Resp B/P (MAP) Pulse Ox O2 Delivery O2 Flow Rate FiO2 09/12/24 23:10 98.3 84 22 130/47 (74) 98 98.3 Laboratory Tests Test 09/12/24 23:23 White Blood Count 8.0 10^3/uL (4.4-10.8) Departure 1 Departure Time of Disposition: 00:42 Impression: Primary Impression: Small bowel obstruction Additional Impression: Epigastric pain Disposition: ADMITTED INPATIENT Condition: Stable Critical Care Note Critical Care Time?: No Stability Stability form required: No Heart Score Heart Score: Heart Score Response (Comments) Value History N/A 0 EKG N/A 0 Age N/A 0 Risk Factors N/A 0 Troponin N/A 0 Total 0 BETTE ALTAMIRANOP Sep 13, 2024 00:42
[2024-09-13 00:47] LABS: Urine Bacteria None Seen /hpf (None Seen)
[2024-09-13 01:08] LABS: Urine Blood Negative /uL (Negative); Urine Clarity Clear (Clear); Urine Color Yellow (Yellow); Urine Protein, UAD Negative (Negative); Urine Specific Gravity 1.022 (1.001-1.035); Urine Squamous Epithelial Cell FEW /hpf (<5); Urine Urobilinogen Normal (Negative); Urine WBC 9 /HPF (0-5); Urine pH 5.5 (5.0-9.0)
[2024-09-13] MEDS ORDERED: MORPHINE SULFATE INJ 2 MG/ml SYRG IV PRN (01:45)
[2024-09-13] MEDS ORDERED: ONDANSETRON HCL 4 MG/2 ML VIAL IV PRN (01:45)
[2024-09-13] MEDS: ONDANSETRON HCL 4 MG/2 ML VIAL IV ONE (02:13)
[2024-09-13] MEDS: MORPHINE SULFATE 4 MG/ML SYR/VIAL IV ONE (02:13)
[2024-09-13] MEDS: PANTOPRAZOLE 40 MG/10 ML VIAL INJ IV ONE (03:10)
[2024-09-13] MEDS: cefTRIAXone 1GM/50ML D5W 50 ML IV ONE (03:10)
[2024-09-13] MEDS: SODIUM CHLORIDE 0.9% 1,000 ML IV ONE (03:11)
--- NOTE | 2024-09-13 03:15 | DVHHPRES ---
History of Present Illness Resident Creating Document: OTF ESPINOZA RESIDENT History of Present Illness Patient is a 63-year-old female past medical history of gastritis, DVT recently diagnosed presented to the ED with a chief complaint of sudden onset abdominal pain. Patient reported that in the afternoon yesterday she ate meat nancy rosenbaum and about hour to hour after that around 6 in the evening she started to have sudden onset right sided abdominal pain which was intermittent with the episodes of sharp pain, nonradiating, associated with nausea and sour taste in the mouth but no vomiting, 4-5 episodes of loose stools. Patient denies dysuria, fever, chills, no recent abdominal surgery, no sick contacts. Patient reports endoscopy done with the gastro group on 30 August 2024 which showed gastritis and patient was started on omeprazole and sucralfate. Reported that she was recently diagnosed with a DVT in her right leg on September 04 and was started on Xarelto. Past medical history: Gastritis, DVT Past surgical history: Hysterectomy Social history: Patient denies smoking, alcohol, drug use Home medications: Xarelto 15 mg b.i.d. currently, omeprazole, sucralfate b.i.d. Review of Systems Review of Systems Patient seen and examined at the bedside Reports of [id number] pain in the right lumbar region Denies nausea, vomiting Reports that she has not passed flatus since the evening last bowel movement was more than 3-4 hours ago Allergies: Coded Allergies: Ibuprofen (Verified Allergy, Unknown, 09/13/24) Medications Current Medications Medications Dose Ordered Sig/John Route Start Time Stop Time Status Last Admin Dose Admin Ceftriaxone Sodium 50 ml @ 100 mls/hr DAILY@09 IV 09/13/24 09:00 Metronidazole 100 ml @ 100 mls/hr Q8HR IV 09/13/24 06:00 Enoxaparin Sodium 90 mg Q12HR SC 09/13/24 10:00 Pantoprazole Sodium 40 mg DAILY IV 09/13/24 10:00 Morphine Sulfate 2 mg Q6HPRN PRN IV 09/13/24 01:45 Ondansetron HCl 4 mg Q6HPRN PRN IV 09/13/24 01:45 Exam Vital Signs Vital Signs Date Time Temp Pulse Resp B/P (MAP) Pulse Ox O2 Delivery O2 Flow Rate FiO2 09/13/24 02:13 85 15 128/65 09/13/24 01:57 98.8 96 98.8 Exam Gen - no pallor, no icterus, no cyanosis, no clubbing, no LAD, no edema . Skin - Patients skin is warm and dry. HEENT - normocephalic, atraumatic, moist mucous membranes. Neck - full ROM, no LAD, no JVD Pulmonary - B/L equal breath sounds, no crackles, no wheezing, no stridor. cardiovascular - regular S1,S2 heard, no added sounds, no murmurs heard. peripheral pulses normal radial 2+, pedal 2+. capillary refill normal <2 secs. GI - soft abdomen with tenderness to palpation in the right upper quadrant, and the right lumbar quadrant, questionable Carmona's sign. no hepatospleenomegaly. Bowel sounds normoactive but high-pitched Neurological - Patient is A/O X 3 . Bilateral upper extremity strength 5/5, bilateral lower extremity strength 5/5, no facial droop, normal speech, no tremor, no sensory deficiets. Labs/Xrays Labs Test 09/12/24 23:23 09/12/24 00:30 Range/Units White Blood Count 8.0 4.4-10.8 10^3/uL Red Blood Count 4.80 4.0-5.20 10^6/uL Hemoglobin 15.2 12.2-16.2 g/dL Hematocrit 44.7 36.0-46.0 % Mean Corpuscular Volume 93.1 80.0-100.0 fL Mean Corpuscular Hemoglobin 31.5 28.0-32.0 pg Mean Corpuscular Hemoglobin Concent 33.9 32.0-36.0 g/dL Red Cell Distribution Width 14.1 11.8-14.3 % Platelet Count 222 140-450 10^3/uL Mean Platelet Volume 9.0 6.9-10.8 fL Neutrophils (%) (Auto) 79.1 37.0-80.0 % Lymphocytes (%) (Auto) 14.0 10.0-50.0 % Monocytes (%) (Auto) 5.8 0.0-12.0 % Eosinophils (%) (Auto) 0.7 0.0-7.0 % Basophils (%) (Auto) 0.4 0.0-2.0 % Neutrophils # (Auto) 6.3 1.6-8.6 10 ^3/uL Lymphocytes # (Auto) 1.1 0.4-5.4 10 ^3/uL Monocytes # (Auto) 0.5 0-1.3 10 ^3/uL Eosinophils # (Auto) 0.1 0-0.8 10 ^3/uL Basophils # (Auto) 0 0-0.2 10 ^3/uL Nucleated Red Blood Cells 0.0 % Sodium Level 142 136-145 mmol/L Potassium Level 4.1 3.5-5.1 mmol/L Chloride Level 110 H 98-107 mmol/L Carbon Dioxide Level 20 20-31 mmol/L Anion Gap 12 5-15 Blood Urea Nitrogen 12 9-23 mg/dL Creatinine 0.72 0.550-1.02 mg/dL Glomerular Filtration Rate Calc 95 >90 mL/min BUN/Creatinine Ratio 16.7 10.0-20.0 Serum Glucose 117 H 74-106 mg/dL Calcium Level 9.1 8.7-10.4 mg/dL Lipase 46 12-53 U/L Urine Color Yellow Yellow Urine Clarity Clear Clear Urine pH 5.5 5.0-9.0 Urine Specific [place] 1.022 1.001-1.035 Urine Protein Negative Negative Urine Ketones Negative Negative Urine Blood Negative Negative /uL Urine Nitrite Negative Negative Urine Bilirubin Negative Negative Urine Urobilinogen Normal Negative mg/dL Urine Leukocyte Esterase 2+ Negative /uL Urine RBC 2 0 - 4 /hpf Urine Microscopic WBC 9 H 0-5 /HPF Urine Squamous Epithelial Cells Few <5 /hpf Urine Bacteria None seen None Seen /hpf Urine Glucose Normal Normal mg/dL Assessment/Plan Assessment/Plan Intractable abdominal pain Probable acute gastroenteritis ?SBO Colonic diverticulosis - CT abdomen pelvis without contrast showed dilated fluid-filled loops of mid small bowel with transition to decompressed loops seen within the mid abdomen, possible small-bowel obstruction, possible enteritis - NG tube to low intermittent suction - NPO - IV ceftriaxone and metronidazole - IV Protonix - IV fluids - surgery consulted - abdominal ultrasound pending - stool cultures pending Recently diagnosed DVT - has a patient is NPO Xarelto is held - on therapeutic dose Lovenox Goals of care discussed with the patient for over 23 minutes. Full code Time spent: 41 minutes Plan discussed with Dr. Bermudez Plan discussed with: Patient My Orders Orders - OTF ESPINOZA RESIDENT Procedure Category Date Status Time Admit ADMIT 09/13/24 Transmitted 01:33 Oxygen By Nasal RT 09/13/24 Transmitted Cannula 01:33 Stat Ekg For Chest EDI 09/13/24 In Process Pain 01:33 Notify Of Changes EDI 09/13/24 In Process From Base 01:33 Ceftriaxone 1gm/50ml PHA 09/13/24 In Process D5w (Rocephin) 09:00 Metronidazole PHA 09/13/24 In Process 500mg/100ml (Flagyl 06:00 Npo (Nothing By DIET 09/13/24 Transmitted Mouth) Diet Breakfast Enoxaparin Sodium PHA 09/13/24 In Process (Lovenox) 10:00 Pantoprazole PHA 09/13/24 In Process (Protonix) 10:00 Urine Bacterial JANEL 09/13/24 In Process Culture 01:33 Sodium Chloride 0.9% PHA 09/13/24 In Process 01:45 Stool Bacterial JANEL 09/13/24 Logged Culture 01:33 Stool Occult Blood LAB 09/13/24 Logged 01:33 Stool Wbc LAB 09/13/24 Logged 01:33 Covid19 Antigen Nadira LAB 09/13/24 Logged Abdomen Limited US 09/13/24 Logged 01:33 Morphine Sulfate PHA 09/13/24 In Process Injection 01:45 Ondansetron Hcl PHA 09/13/24 In Process (Zofran) 01:45 Electrocardigram EKG 09/13/24 Logged 01:33 Troponin-I Hs LAB 09/13/24 In Process 01:33 * Surgical Consult CONS 09/13/24 Transmitted Date of Service: Sep 13, 2024 Billing Provider: IGNACIO BERMUDEZ MD Common Visit Codes: [id number] INP/OBS CARE (HIGH) Secondary Visit Codes: [id number] CARE PLAN 30 MINUTES OTF ESPINOZA RESIDENT Sep 13, 2024 03:15
--- NOTE | 2024-09-13 03:17 | DVH ---
Examination: ABDL CLINICAL INDICATION: R/O cholecystitis. COMPARISON: None. TECHNIQUE: Using real-time ultrasonic imaging and color Doppler, the abdomen was examined from the x iphoid to below the umbilicus. FINDINGS: Liver: Liver is normal in size and measures 16.7 cm in length. It demonstrates smooth contour and homogeneous echotexture. No evidence of intrahepatic biliary dilatation. No focal hepatic lesion seen. Main portal vein shows hepatopetal flow. No ascites or pleural effusion. Gallbladder and Biliary Tree: Gallbladder appears normal in morphology. Wall thickness is within normal limits, measuring 1.8 mm. No gallstones, polyps, or sludge seen. CBD measures 3.5 mm in diameter. Carmona�s sign is negative. Pancreas: Pancreas is partially obscured but appears within normal limits where visualized. Right Kidney: Right kidney measures 9.1 cm in length. No evidence of renal calculi, hydronephrosis, or mass lesion. IMPRESSION: No sonographic evidence of cholelithiasis or cholecystitis. RECOMMENDATION: Routine clinical correlation. No further imaging required unless clinically indicate d. Electronically Signed 09/13/2024 03:17 Shai Werner
[2024-09-13 03:18] VITALS: PULSE 78; RESP 16; O2SAT 95
[2024-09-13 04:26] LABS: COVID19 ANTIGEN SOFIA FIA NEGATIVE (NEGATIVE); Rapid Influenza A Negative (Negative); Rapid Influenza B Negative (Negative)
[2024-09-13] MEDS: metroNIDAZOLE 500MG/100ML 100 ML IV SCH (05:34)
--- NOTE | 2024-09-13 05:34 | DVH ---
EXAM: XR Chest, 1 View CLINICAL INDICATION: Pain TECHNIQUE: Frontal view of the chest. COMPARISON: No relevant prior studies available. FINDINGS: LUNGS AND PLEURAL SPACES: Unremarkable. No consolidation. No pneumothorax. HEART: Unremarkable. No cardiomegaly. MEDIASTINUM: Unremarkable. Normal mediastinal contour. BONES/JOINTS: Unremarkable. No acute fracture. TUBES, LINES AND DEVICES: Enteric tube tip in the stomach. IMPRESSION: No acute cardiopulmonary process.
[2024-09-13 07:00] LABS: Basophils # (auto) 0 10 ^3/uL (0-0.2); Basophils % (auto) 0.9 % (0.0-2.0); Eosinophils # (auto) 0 10 ^3/uL (0-0.8); Eosinophils % (auto) 0.5 % (0.0-7.0); Hematocrit 41.3 % (36.0-46.0); Hemoglobin 13.9 g/dL (12.2-16.2); Lymphocytes # (auto) 1.2 10 ^3/uL (0.4-5.4); Lymphocytes % (auto) 25.9 % (10.0-50.0); Mean Corpuscular Hemoglobin 31.5 pg (28.0-32.0); Mean Corpuscular Hgb Conc. 33.7 g/dL (32.0-36.0); Mean Corpuscular Volume 93.4 fL (80.0-100.0); Monocytes # (auto) 0.4 10 ^3/uL (0-1.3); Monocytes % (auto) 7.7 % (0.0-12.0); Nucleated Red Blood Cells % 0.1 %; Platelet Count (auto) 199 10^3/uL (140-450); Red Blood Cells 4.43 10^6/uL (4.0-5.20); Red Cell Distribution Width 14.2 % (11.8-14.3); White Blood Cell 4.7 10^3/uL (4.4-10.8)
[2024-09-13 07:15] LABS: INR 0.98 (0.9-1.15); Partial Thromboplastin Time 28.8 SEC (24.5-34.5); Prothrombin Time 10.4 sec (9.3-11.8)
[2024-09-13 07:18] LABS: Alanine Aminotransferase 16 U/L (7-40); Alkaline Phosphatase 84 U/L (46-116); Anion Gap 10 (5-15); Aspartate Aminotransferase 16 U/L (<34); Blood Urea Nitrogen 11 mg/dL (9-23); Calcium 8.9 mg/dL (8.7-10.4); Carbon Dioxide 23 mmol/L (20-31); Glucose 102 mg/dL (74-106); Sodium 144 mmol/L (136-145); Total Protein 6.5 g/dL (5.7-8.2)
[2024-09-13 07:23] LABS: Chloride 111 mmol/L (98-107)
[2024-09-13 07:40] LABS: BUN/Creatinine Ratio 19.6 (10.0-20.0)
[2024-09-13] MEDS: GASTROGRAFIN 120 ML SOL ONE (10:30)
--- NOTE | 2024-09-13 10:45 | DVHPNRES ---
Progress Note Date Seen: Sep 13, 2024 Resident Creating Document: STEPHANIE HUMPHREY RESIDENT Has the PT tested + for MRSA If YES, has PT been informed?: No Medical Necessity Reason Pt with a Central, PICC or Fol: No Subjective Review of Systems Patient is a 63-year-old female past medical history of gastritis, DVT recently diagnosed presented to the ED with a chief complaint of sudden onset abdominal pain. Patient reported that in the afternoon yesterday she ate meat juniee asada and about hour to hour after that around 6 in the evening she started to have sudden onset right sided abdominal pain which was intermittent with the episodes of sharp pain, nonradiating, associated with nausea and sour taste in the mouth but no vomiting, 4-5 episodes of loose stools. Patient denies dysuria, fever, chills, no recent abdominal surgery, no sick contacts. Patient reports endoscopy done with the gastro group on 30 August 2024 which showed gastritis and patient was started on omeprazole and sucralfate. Reported that she was recently diagnosed with a DVT in her right leg on September 04 and was started on Xarelto. Past medical history: Gastritis, DVT Past surgical history: Hysterectomy Social history: Patient denies smoking, alcohol, drug use Home medications: Xarelto 15 mg b.i.d. currently, omeprazole, sucralfate b.i.d. 09/13/2024: Gastrografin: Small bowel loops are normal in size. Normal mucosal pattern. No evidence of small bowel obstruction, stricture, or mucosal abnormality.Normal small bowel series. Nasogastric tube tip in the stomach. pending surgical consult Objective vital signs Vital Sign Date Time Temp Pulse Resp B/P (MAP) Pulse Ox O2 Delivery O2 Flow Rate FiO2 09/13/24 08:00 97.8 70 15 115/66 (82) 95 97.8 09/13/24 07:20 Room Air* 0 21 Total Intake and Output 09/12/24 09/12/24 09/13/24 15:00 23:00 07:00 Intake Total 300 ml Balance 300 ml medications Current Medications Medications Dose Ordered Sig/John Route Start Time Stop Time Status Last Admin Dose Admin Ceftriaxone Sodium 50 ml @ 100 mls/hr DAILY@09 IV 09/13/24 09:00 Metronidazole 100 ml @ 100 mls/hr Q8HR IV 09/13/24 06:00 09/13/24 05:34 100 MLS/HR Enoxaparin Sodium 90 mg Q12HR SC 09/13/24 10:00 Hold Pantoprazole Sodium 40 mg DAILY IV 09/13/24 10:00 Morphine Sulfate 2 mg Q6HPRN PRN IV 09/13/24 01:45 Ondansetron HCl 4 mg Q6HPRN PRN IV 09/13/24 01:45 Examination Gen - no pallor, no icterus, no cyanosis, no clubbing, no LAD, no edema . Skin - Patients skin is warm and dry. HEENT - normocephalic, atraumatic, moist mucous membranes. Neck - full ROM, no LAD, no JVD Pulmonary - B/L equal breath sounds, no crackles, no wheezing, no stridor. cardiovascular - regular S1,S2 heard, no added sounds, no murmurs heard. peripheral pulses normal radial 2+, pedal 2+. capillary refill normal <2 secs. GI - soft abdomen with tenderness to palpation in the right upper quadrant, and the right lumbar quadrant, questionable Carmona's sign. no hepatospleenomegaly. Bowel sounds normoactive but high-pitched Neurological - Patient is A/O X 3 . Bilateral upper extremity strength 5/5, bilateral lower extremity strength 5/5, no facial droop, normal speech, no tremor, no sensory deficiets. laboratory and microbiology Laboratory Tests 09/13/24 06:44 Test 09/13/24 06:44 Range/Units Serum Glucose 102 74-106 mg/dL Problem List/Assessment/Plan Problem List/Assessment/Plan Intractable abdominal pain Probable acute gastroenteritis SBO ruled out Colonic diverticulosis - Gastrografin: Small bowel loops are normal in size. Normal mucosal pattern. No evidence of small bowel obstruction, stricture, or mucosal abnormality.Normal small bowel series. Nasogastric tube tip in the stomach. pending surgical consult - CT abdomen pelvis without contrast showed dilated fluid-filled loops of mid small bowel with transition to decompressed loops seen within the mid abdomen, possible small-bowel obstruction, possible enteritis - Remove NG tube - Clear liquid diet - IV ceftriaxone and metronidazole - IV Protonix - IV fluids - surgery consulted due to the CT findings - abdominal ultrasound normal - stool cultures pending Recently diagnosed DVT - - on therapeutic dose Lovenox Goals of care discussed with the patient for over 23 minutes. Full code Time spent: 41 minutes Plan discussed with Dr. Washington Plan discussed with: Patient, Other (rn) My Orders My Orders Orders - STEPHANIE HUMPHREY Procedure Category Date Status Time * Surgical Consult CONS 09/13/24 Transmitted 09:29 Lactic Acid W/ Reflex LAB 09/13/24 Logged Order 09:29 Small Bowel Series-W XY 09/13/24 Logged Gastrogra 10:21 STEPHANIE HUMPHREY RESIDENT Sep 13, 2024 10:45
[2024-09-13 12:56] VITALS: PULSE 79; RESP 16; O2SAT 96
[2024-09-13 12:58] VITALS: BP 133/66; PULSE 79; RESP 16; TEMP 97.9; O2SAT 96
[2024-09-13 13:00] VITALS: BP 133/66; PULSE 79; RESP 16; TEMP 97.9; O2SAT 96
[2024-09-13] MEDS: PANTOPRAZOLE 40 MG/10 ML VIAL INJ IV SCH (13:18)
[2024-09-13] MEDS: cefTRIAXone 1GM/50ML D5W 50 ML IV SCH (13:18)
--- NOTE | 2024-09-13 13:49 | DVH ---
Procedure: XY SMALL BOWEL SERIES-W GASTROGRA Exam Date: 09/13/2024 10:52 AM Reason for study/Clinical History: possible sbo Comparison Study: None Technique: Single contrast small bowel series performed. 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 Contrast is identified within the colon by 45 min. This represents a normal small bowel transit time . Small bowel loops are normal in size. Normal mucosal pattern. No evidence of small bowel obstructi on, stricture, or mucosal abnormality. The terminal ileum is well visualized and is unremarkable. IMPRESSION: Normal small bowel series. Nasogastric tube tip in the stomach. END IMPRESSION:
[2024-09-13 17:00] VITALS: BP 128/65; PULSE 83; RESP 16; TEMP 98; O2SAT 97
[2024-09-13 21:00] VITALS: BP 124/63; PULSE 58; RESP 18; TEMP 97.8; O2SAT 96
[2024-09-13] MEDS: ENOXAPARIN SOD 100 MG/1 ML SYRINGE SC SCH (21:29)
[2024-09-14] VITALS (8 sets, daily range): BP systolic 103–135; BP diastolic 46–77; PULSE 60–83; RESP 16–20; TEMP 97.1–98.2; O2SAT 95–100
[2024-09-14] MEDS: SODIUM CHLORIDE 0.9% 1,000 ML IV ONE (11:56)
--- NOTE | 2024-09-14 15:33 | DVHPNRES ---
Progress Note Date Seen: Sep 14, 2024 Resident Creating Document: STEPHANIE HUMPHREY RESIDENT Has the PT tested + for MRSA If YES, has PT been informed?: No Medical Necessity Reason Pt with a Central, PICC or Fol: No Subjective Review of Systems Patient is a 63-year-old female past medical history of gastritis, DVT recently diagnosed presented to the ED with a chief complaint of sudden onset abdominal pain. Patient reported that in the afternoon yesterday she ate meat carne asada and about hour to hour after that around 6 in the evening she started to have sudden onset right sided abdominal pain which was intermittent with the episodes of sharp pain, nonradiating, associated with nausea and sour taste in the mouth but no vomiting, 4-5 episodes of loose stools. Patient denies dysuria, fever, chills, no recent abdominal surgery, no sick contacts. Patient reports endoscopy done with the gastro group on 30 August 2024 which showed gastritis and patient was started on omeprazole and sucralfate. Reported that she was recently diagnosed with a DVT in her right leg on September 04 and was started on Xarelto. Past medical history: Gastritis, DVT Past surgical history: Hysterectomy Social history: Patient denies smoking, alcohol, drug use Home medications: Xarelto 15 mg b.i.d. currently, omeprazole, sucralfate b.i.d. 09/13/2024: Gastrografin: Small bowel loops are normal in size. Normal mucosal pattern. No evidence of small bowel obstruction, stricture, or mucosal abnormality.Normal small bowel series. Nasogastric tube tip in the stomach. pending surgical consult 09/14/2024: patient passed stool, IV fluids given, tolerating diet Objective vital signs Vital Sign Date Time Temp Pulse Resp B/P (MAP) Pulse Ox O2 Delivery O2 Flow Rate FiO2 09/14/24 12:48 97.1 69 18 122/71 (88) 98 97.1 09/14/24 08:30 Room Air* 0 21 Total Intake and Output 09/13/24 09/13/24 09/14/24 15:00 23:00 07:00 Intake Total 0 ml 300 ml Balance 0 ml 300 ml medications Current Medications Medications Dose Ordered Sig/John Route Start Time Stop Time Status Last Admin Dose Admin Ceftriaxone Sodium 50 ml @ 100 mls/hr DAILY@09 IV 09/13/24 09:00 09/14/24 09:15 100 MLS/HR Metronidazole 100 ml @ 100 mls/hr Q8HR IV 09/13/24 06:00 09/14/24 15:03 100 MLS/HR Enoxaparin Sodium 90 mg Q12HR SC 09/13/24 10:00 09/14/24 09:17 90 MG Pantoprazole Sodium 40 mg DAILY IV 09/13/24 10:00 09/14/24 09:16 40 MG Morphine Sulfate 2 mg Q6HPRN PRN IV 09/13/24 01:45 Ondansetron HCl 4 mg Q6HPRN PRN IV 09/13/24 01:45 Examination Gen - no pallor, no icterus, no cyanosis, no clubbing, no LAD, no edema . Skin - Patients skin is warm and dry. HEENT - normocephalic, atraumatic, moist mucous membranes. Neck - full ROM, no LAD, no JVD Pulmonary - B/L equal breath sounds, no crackles, no wheezing, no stridor. cardiovascular - regular S1,S2 heard, no added sounds, no murmurs heard. peripheral pulses normal radial 2+, pedal 2+. capillary refill normal <2 secs. GI - soft abdomen with tenderness to palpation in the right upper quadrant, and the right lumbar quadrant, questionable Carmona's sign. no hepatospleenomegaly. Bowel sounds normoactive but high-pitched Neurological - Patient is A/O X 3 . Bilateral upper extremity strength 5/5, bilateral lower extremity strength 5/5, no facial droop, normal speech, no tremor, no sensory deficiets. laboratory and microbiology Laboratory Tests 09/13/24 06:44 Test 09/13/24 06:44 Range/Units Serum Glucose 102 74-106 mg/dL Microbiology Date/Time Source Procedure Growth Status 09/13/24 00:30 Urine - Midstream Clean Catch Urine Culture - Preliminary Resulted Problem List/Assessment/Plan Problem List/Assessment/Plan Intractable abdominal pain Probable acute bacterial gastroenteritis SBO ruled out Colonic diverticulosis - Gastrografin: Small bowel loops are normal in size. Normal mucosal pattern. No evidence of small bowel obstruction, stricture, or mucosal abnormality.Normal small bowel series. Nasogastric tube tip in the stomach. 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 Full code Time spent: 41 minutes Plan discussed with Dr. Washington Plan discussed with: Patient, Other My Orders My Orders Orders - STEPHANIE HUMPHREY RESIDENT Procedure Category Date Status Time Communication Order ORDERS 09/13/24 Transmitted 17:38 Mechanical Soft Diet DIET 09/14/24 Transmitted Lunch STEPHANIE HUMPHREY RESIDENT Sep 14, 2024 15:33
[2024-09-15 01:00] VITALS: BP 103/51; PULSE 78; RESP 18; TEMP 97.7; O2SAT 99
[2024-09-15 05:00] VITALS: BP 107/65; PULSE 64; RESP 18; TEMP 97.2; O2SAT 97
[2024-09-15 08:30] VITALS: PULSE 71; RESP 16; O2SAT 98
[2024-09-15 08:46] VITALS: BP 112/69; PULSE 71; RESP 16; TEMP 97; O2SAT 98
[2024-09-15] MEDS ORDERED: CIPR500T4 PO (10:32)
[2024-09-15] MEDS ORDERED: METR-344 PO (10:32)
[2024-09-15 13:00] VITALS: BP 141/73; PULSE 76; RESP 17; TEMP 97.6; O2SAT 99
--- NOTE | 2024-09-15 17:17 | DVHDSRES ---
Discharge Summary Date of Admission Resident Creating Document: STEPHANIE HUMPHREY RESIDENT Sep 13, 2024 at 01:33 Date of Discharge: Sep 15, 2024 Admitting Diagnosis Intractable abdominal pain Probable acute bacterial gastroenteritis SBO ruled out Labs/Diagnostic Data: Laboratory Results Test 09/14/24 08:29 09/13/24 12:47 09/13/24 06:44 09/13/24 03:37 Stool Occult Blood Positive (Negative) Stool Occult Blood Sample #3 (Negative) Stool for White Cells Rare Lactic Acid Level 1.3 mmol/L (0.4-2.0) White Blood Count 4.7 10^3/uL (4.4-10.8) Red Blood Count 4.43 10^6/uL (4.0-5.20) Hemoglobin 13.9 g/dL (12.2-16.2) Hematocrit 41.3 % (36.0-46.0) Mean Corpuscular Volume 93.4 fL (80.0-100.0) Mean Corpuscular Hemoglobin 31.5 pg (28.0-32.0) Mean Corpuscular Hemoglobin Concent 33.7 g/dL (32.0-36.0) Red Cell Distribution Width 14.2 % (11.8-14.3) Platelet Count 199 10^3/uL (140-450) Mean Platelet Volume 8.8 fL (6.9-10.8) Neutrophils (%) (Auto) 65.0 % (37.0-80.0) Lymphocytes (%) (Auto) 25.9 % (10.0-50.0) Monocytes (%) (Auto) 7.7 % (0.0-12.0) Eosinophils (%) (Auto) 0.5 % (0.0-7.0) Basophils (%) (Auto) 0.9 % (0.0-2.0) Neutrophils # (Auto) 3.0 10 ^3/uL (1.6-8.6) Lymphocytes # (Auto) 1.2 10 ^3/uL (0.4-5.4) Monocytes # (Auto) 0.4 10 ^3/uL (0-1.3) Eosinophils # (Auto) 0 10 ^3/uL (0-0.8) Basophils # (Auto) 0 10 ^3/uL (0-0.2) Nucleated Red Blood Cells 0.1 % Prothrombin Time 10.4 sec (9.3-11.8) Prothrombin Time INR 0.98 (0.9-1.15) Activated Partial Thromboplast Time 28.8 SEC (24.5-34.5) Sodium Level 144 mmol/L (136-145) Potassium Level 4.0 mmol/L (3.5-5.1) Chloride Level 111 mmol/L (98-107) Carbon Dioxide Level 23 mmol/L (20-31) Anion Gap 10 (5-15) Blood Urea Nitrogen 11 mg/dL (9-23) Creatinine 0.56 mg/dL (0.550-1.02) Glomerular Filtration Rate Calc 104 mL/min (>90) BUN/Creatinine Ratio 19.6 (10.0-20.0) Serum Glucose 102 mg/dL (74-106) Calcium Level 8.9 mg/dL (8.7-10.4) Total Bilirubin 1.0 mg/dL (0.2-1.0) Aspartate Amino Transferase (AST) 16 U/L (<34) Alanine Aminotransferase (ALT) 16 U/L (7-40) Alkaline Phosphatase 84 U/L (46-116) Total Protein 6.5 g/dL (5.7-8.2) Albumin 4.0 g/dL (3.2-4.8) Influenza Type A Antigen Negative (Negative) Influenza Type B Antigen Negative (Negative) SARS-CoV-2 Antigen (Rapid) Negative (NEGATIVE) Test 09/12/24 23:23 09/12/24 00:30 Troponin I High Sensitivity 27 ng/L (</=34) Lipase 46 U/L (12-53) Urine Color Yellow (Yellow) Urine Clarity Clear (Clear) Urine pH 5.5 (5.0-9.0) Urine Specific [place] 1.022 (1.001-1.035) Urine Protein Negative (Negative) Urine Ketones Negative (Negative) Urine Blood Negative /uL (Negative) Urine Nitrite Negative (Negative) Urine Bilirubin Negative (Negative) Urine Urobilinogen Normal mg/dL (Negative) Urine Leukocyte Esterase 2+ /uL (Negative) Urine RBC 2 /hpf (0 - 4) Urine Microscopic WBC 9 /HPF (0-5) Urine Squamous Epithelial Cells Few /hpf (<5) Urine Bacteria None seen /hpf (None Seen) Urine Glucose Normal mg/dL (Normal) Other Laboratory Tests 09/13/24 06:44 Brief Hx & Hospital Course: 63-year-old female with past medical history of DVT and gastritis presented with acute onset right-sided abdominal pain associated with nausea, sour taste, and 45 episodes of loose stools following carne asada ingestion. Hospital Course: On presentation, the patient was afebrile and hemodynamically stable. She denied dysuria, fever, or recent sick contacts. Imaging including a CT abdomen/pelvis without contrast suggested possible small bowel obstruction (SBO) or enteritis; however, a gastrografin study ruled out SBO. She was placed NPO initially with nasogastric decompression. An EGD performed prior to admission showed gastritis, and the patient was continued on omeprazole and sucralfate. She was also found to have a recent DVT in the right leg for which she was on Xarelto, transitioned to Lovenox during admission for therapeutic anticoagulation. She received IV fluids, IV ceftriaxone, and metronidazole with good response. Her abdominal pain improved, and she tolerated a soft mechanical diet. She passed stool and was ambulating independently. Stool cultures returned negative. FOB came positive, patient will need colonoscopy as outpatient Discharge Medications: Ciprofloxacin 500 mg PO BID x5 days Metronidazole 500 mg PO TID x5 days Gabapentin 100 mg PO BID Omeprazole 40 mg PO daily Sucralfate 1 gm PO TID Continue anticoagulation Case discussed with Dr Washington Operations or Procedures Procedure: XY SMALL BOWEL SERIES-W GASTROGRA Exam Date: 09/13/2024 10:52 AM Reason for study/Clinical History: possible sbo Comparison Study: None Technique: Single contrast small bowel series performed. Findings: Initial mold capper helper view of the abdomen and pelvis appears demonstrates no acute process. Contrast is identified within the colon by 45 min. This represents a normal small bowel transit time. Small bowel loops are normal in size. Normal mucosal pattern. No evidence of small bowel obstruction, stricture, or mucosal abnormality. The terminal ileum is well visualized and is unremarkable. IMPRESSION: Normal small bowel series. Nasogastric tube tip in the stomach. Condition at Discharge: Stable Final Diagnosis/Problems List Intractable abdominal pain Probable acute bacterial gastroenteritis SBO ruled out Colonic diverticulosis Recently diagnosed DVT Discharge Disposition: Home Discharge Instruct/Medications Diet: See Comment Diet comment: clear liquid diet Activity: Light activity [facility] Medications: see prescription Discharge Statement: "Patient was advised to return to the ER or call 911 if any headaches, dizziness, shortness of breath, chest pain, abdominal pain, bleeding, fevers, or worsening of medical condition. Patient was counseled about treatment plan, medications, possible side effects, patientverbalized understanding. All questions were answered to the best of my ability. This discharge took greater then 30 minutes in planning, reviewing documentation, counseling the patient, and discussing with other team members." ASSESSMENT ASSESSMENT Assessment acute gastroenteritis STEPHANIE HUMPHREY RESIDENT Sep 15, 2024 17:17
== END 2024-09-15 15:33 | disposition home or self-care (01) | DRG 248 ==
LOC: ER 23:01 → OVERFLOW 09-13 01:33 → CENTRAL 09-13 13:03
PROVIDERS: ADMIT Student in an Organized Health Care Education/Training Program; ATTEND Student in an Organized Health Care Education/Training Program
PROC: 0D9670Z Drainage of Stomach with Drainage Device, Via Natural or Artificial Opening (ICD-10-PCS; principal; 2024-09-13)
DX: A04.9 Bacterial intestinal infection, unspecified (principal); K21.9 Gastro-esophageal reflux disease without esophagitis; K57.30 Diverticulosis of large intestine without perforation or abscess without bleeding
CPT/HCPCS: 36415; 71045; 74176; 74250; 76705; 80048; 80053; 81001; 82270; 83605; 83690; 84484; 85025; 85048; 85610; 85730; 87045; 87086; 87426; 87427; 87493; 87804; 96365; 96375; G0378; J2405; J2470; J3490